=== PATIENT | male | born 1945 | race Caucasian/White ===

== ENCOUNTER → 2016-08-24 | Outpatient (CLI) | payer MEDICARE, BC ==
[~2016-08-24] MED LIST: ACCU5TAB PO; ADVA250A INH; ATOR10TA15 PO; BUME1TAB PO; CARD120C4 PO; CICL8KIT2 TOPICAL; CINN500T PO; DIGO0.12 PO; ESSE250T; FLUT50SP EACH NARE; GLIP5TAB8 PO; LEVOTAB PO; LIDO5DIS35 TOPICAL; META48.53 PO; METF500T PO; MIRA3350; MULT-6 PO; OMEP20TA PO; PRAD150C PO; QUIN40TA17 PO; QUIN40TA2 PO; SPIR25TA PO; STOO100T; TOPR200T PO; VITA100064 PO
[2016-08-24 09:40] LABS: ALKALINE PHOSPHATASE 72 U/L (45-117); ALT (GPT) 23 U/L (12-78); ANION GAP 7 MEQ/L (5-15); AST (GOT) 15 U/L (15-37); BICARBONATE 29.8 MEQ/L (21.0-32.0); BLOOD UREA NITROGEN 22 MG/DL (7-18); CHLORIDE 100 MEQ/L (98-107); GLOMERULAR FILTRATION RATE 58 ML/MIN (>89); GLUCOSE,FASTING 190 MG/DL (74-99); HDL CHOLESTEROL 38.1 MG/DL (40.0-60.0); POTASSIUM 4.5 MEQ/L (3.5-5.1); SODIUM (NA) 137 MEQ/L (136-145); TOTAL BILIRUBIN ADULT 0.6 MG/DL (0.2-1.0)
== END ==
LOC: PLAB 06:44
PROVIDERS: ATTEND Internal Medicine Interventional Cardiology
DX: I25.5 Ischemic cardiomyopathy (principal); I25.10 Atherosclerotic heart disease of native coronary artery without angina pectoris; I11.9 Hypertensive heart disease without heart failure; E78.00 Pure hypercholesterolemia, unspecified; I48.91 Unspecified atrial fibrillation
CPT/HCPCS: 36415; 80053; 80061

== ENCOUNTER → 2016-10-06 | Outpatient (CLI) | payer MEDICARE, BC ==
[~2016-10-06] MED LIST changes: -ACCU5TAB PO
[2016-10-06 10:39] LABS: HDL CHOLESTEROL 37.4 MG/DL (40.0-60.0)
== END ==
LOC: PLAB 07:42
PROVIDERS: ATTEND Internal Medicine Interventional Cardiology
DX: E78.00 Pure hypercholesterolemia, unspecified (principal); I11.9 Hypertensive heart disease without heart failure; I25.5 Ischemic cardiomyopathy; I25.10 Atherosclerotic heart disease of native coronary artery without angina pectoris
CPT/HCPCS: 36415; 80061; 84450; 84460

== ENCOUNTER → 2016-12-23 | Outpatient (CLI) | payer MEDICARE, BC ==
[2016-12-23 09:55] LABS: HEMATOCRIT 36.3 % (39.0-51.0); MEAN CELL VOLUME 90.2 FL (80.0-100.0); MEAN CORPUSCULAR HEMOGLOBIN 31.3 PG (27.0-34.0); MEAN CORPUSCULAR HGB CONC 34.6 % (32.0-36.0); PLATELET COUNT 224 TH/MM3 (150-450); RED BLOOD COUNT 4.02 MIL/MM3 (4.50-5.90); RED CELL DISTRIBUTION WIDTH 13.1 % (11.6-17.2); REVIEW FLAG FINAL; WHITE BLOOD COUNT 11.9 TH/MM3 (4.0-11.0)
[2016-12-23 10:20] LABS: ANION GAP 9 MEQ/L (5-15); BICARBONATE 28.8 MEQ/L (21.0-32.0); BLOOD UREA NITROGEN 21 MG/DL (7-18); CHLORIDE 101 MEQ/L (98-107); GLOMERULAR FILTRATION RATE 65 ML/MIN (>89); POTASSIUM 4.6 MEQ/L (3.5-5.1); SODIUM (NA) 139 MEQ/L (136-145)
[2016-12-23 10:26] LABS: HDL CHOLESTEROL 37.9 MG/DL (40.0-60.0); LDL CHOLESTEROL 14 MG/DL (0-99)
[2016-12-23 10:42] LABS: HEMOGLOBIN A1a 1.1 %; HEMOGLOBIN A1b 2.8 %; HEMOGLOBIN Ao 77.6 %; HEMOGLOBIN LA1C 2.8 %; HEMOGLOBIN P3 5.2 %
== END ==
LOC: PLAB 07:05
PROVIDERS: ATTEND Family Medicine
DX: I25.10 Atherosclerotic heart disease of native coronary artery without angina pectoris (principal); E11.65 Type 2 diabetes mellitus with hyperglycemia; I10 Essential (primary) hypertension
CPT/HCPCS: 36415; 80048; 80061; 83036; 85027

== ENCOUNTER → 2017-01-27 | Outpatient (CLI) | payer MEDICARE, BC ==
[~2017-01-27] MED LIST changes: -CICL8KIT2 TOPICAL; -QUIN40TA2 PO
[2017-01-27 09:36] LABS: ANION GAP 7 MEQ/L (5-15); AST (GOT) 18 U/L (15-37); BICARBONATE 27.4 MEQ/L (21.0-32.0); BLOOD UREA NITROGEN 26 MG/DL (7-18); CHLORIDE 103 MEQ/L (98-107); GLOMERULAR FILTRATION RATE 63 ML/MIN (>89); GLUCOSE,FASTING 184 MG/DL (74-99); POTASSIUM 4.7 MEQ/L (3.5-5.1); SODIUM (NA) 137 MEQ/L (136-145)
[2017-01-27 09:38] LABS: ALT (GPT) 24 U/L (12-78)
[2017-01-27 09:40] LABS: ALKALINE PHOSPHATASE 73 U/L (45-117); HDL CHOLESTEROL 36.6 MG/DL (40.0-60.0); TOTAL BILIRUBIN ADULT 0.6 MG/DL (0.2-1.0)
[2017-01-27 09:51] LABS: LDL CHOLESTEROL ND MG/DL (0-99)
== END ==
LOC: PLAB 06:39
PROVIDERS: ATTEND Internal Medicine Interventional Cardiology
DX: I25.5 Ischemic cardiomyopathy (principal); I11.9 Hypertensive heart disease without heart failure; I48.91 Unspecified atrial fibrillation; I25.10 Atherosclerotic heart disease of native coronary artery without angina pectoris; E78.00 Pure hypercholesterolemia, unspecified
CPT/HCPCS: 36415; 80053; 80061

== ENCOUNTER → 2017-03-22 | Outpatient (CLI) | payer MEDICARE, BC ==
[~2017-03-22] MED LIST changes: +ATOR1TAB18 PO; +CANA100T PO; +GLIP1TAB51 PO; +LIDO1PAD52 TOPICAL; -LIDO5DIS35 TOPICAL; +METF1000 PO; +NAPR500T PO
[2017-03-22 12:02] LABS: HEMOGLOBIN A1a 1.1 %; HEMOGLOBIN Ao 76.8 %; HEMOGLOBIN LA1C 3.2 %; HEMOGLOBIN P3 5.4 %
== END ==
LOC: PLAB 07:05
PROVIDERS: ATTEND Family Medicine
DX: E11.65 Type 2 diabetes mellitus with hyperglycemia (principal)
CPT/HCPCS: 36415; 83036

== ENCOUNTER → 2017-12-02 | Outpatient (CLI) | DX: I25.10 Atherosclerotic heart disease of native coronary artery without angina pectoris (principal); E11.65 Type 2 diabetes mellitus with hyperglycemia ==